=== PATIENT | male | born 1990 | race African-American/Black ===

== ENCOUNTER 2021-06-13 23:38 | Emergency (ER) | payer MEDICAID ==
[~2021-06-13] VITALS: Ht 175.3 cm; Wt 75.0 kg
[2021-06-14 00:06] LABS: BASOPHILS % (AUTO) 0.2 % (0.0-2.0); EOSINOPHILS % (AUTO) 0.8 % (1.0-6.0); HEMATOCRIT 36.5 % (41-53); HEMOGLOBIN 12.3 g/dL (13.5-17.5); LYMPHOCYTES # (AUTO) 0.6 K/uL (1.0-4.8); LYMPHOCYTES % (AUTO) 8.4 % (22.0-44.0); MEAN CORPUSCULAR HEMOGLOBIN 26.1 pg (26.0-34.0); MEAN CORPUSCULAR HGB CONC 33.6 G/dL (31.0-37.0); MEAN CORPUSCULAR VOLUME 78 fL (80-100); MONOCYTES # (AUTO) 0.5 K/uL (0.1-1.0); MONOCYTES % (AUTO) 7.1 % (2.0-9.0); NEUTROPHILS # (AUTO) 5.6 K/uL (1.8-7.7); NEUTROPHILS % (AUTO) 83.5 % (40.0-70.0); PLATELET COUNT (AUTO) 275 K/uL (150-450); RED CELL DISTRIBUTION WIDTH 12.9 % (11.5-14.5)
[2021-06-14] MEDS ORDERED: DiphenhydrAMINE HCL 50 MG/ML VIAL IM ONE (00:15)
[2021-06-14] MEDS ORDERED: HALOPERIDOL LACTATE 5 MG/ML VIAL IM ONE (00:15)
[2021-06-14] MEDS ORDERED: LORazepam 2 MG/ML VIAL IVP ONE ×3 (00:15)
[2021-06-14] MEDS ORDERED: LORazepam 2 MG/ML VIAL IM ONE (00:30)
[2021-06-14 00:32] LABS: COVID AG,FIA SOURCE NASOPHARYNGEAL
[2021-06-14 00:42] LABS: ALANINE AMINOTRANSFERASE 26 U/L (12-78); ALBUMIN 3.7 g/dL (3.4-5.0); ALKALINE PHOSPHATASE 78 U/L (46-116); ANION GAP 8 mmol/L (8-16); ASPARTATE AMINOTRANSFERASE 20 U/L (15-37); BILIRUBIN,TOTAL 0.3 mg/dL (0.1-1.0); CALCIUM, TOTAL 8.8 mg/dL (8.8-10.5); CARBON DIOXIDE 28 mmol/L (22-29); CHLORIDE 103 mmol/L (98-107); CREATINE KINASE, TOTAL ONLY 452 U/L (39-308); CREATININE 1.33 mg/dL (0.60-1.30); POTASSIUM 4.2 mmol/L (3.5-5.1); SODIUM SERUM 139 mmol/L (136-145); TOTAL PROTEIN, SERUM 7.3 g/dL (6.4-8.2); UREA NITROGEN, BLOOD 22 mg/dL (7-18)
[2021-06-14 00:58] LABS: GLOMERULAR FILTR. RATE CALC > 60 mL/min (>60); GLUCOSE,RANDOM 81 mg/dL (70-110)
[2021-06-14 08:00] VITALS: BP 143/70
== END 2021-06-14 08:40 | disposition left against medical advice (07) ==
LOC: EMS 23:38
DX: F19.959 Other psychoactive substance use, unspecified with psychoactive substance-induced psychotic disorder, unspecified (principal); F12.90 Cannabis use, unspecified, uncomplicated; F15.90 Other stimulant use, unspecified, uncomplicated; Z79.899 Other long term (current) drug therapy; Z20.822 Contact with and (suspected) exposure to COVID-19
CPT/HCPCS: 36415; 80053; 82550; 85025; 87426; 93005; 96372; 96374; 96375; 99285; G0480; J1200; J1630; J2060 ×2

== ENCOUNTER 2024-05-19 14:20 | Inpatient (IN) | payer MEDICAID, OTHER ==
[~2024-05-19] VITALS: Ht 172.7 cm; Wt 70.5 kg
[~2024-05-19 14:20] MED LIST: BUPR-49 PO; BUSP10TA23 PO; OLAN7.5T22 PO; VENL-193 PO
[2024-05-19] MEDS: SODIUM CHLORIDE 0.9% 1,000 ML IV ONE ×2 (14:36→19:09)
[2024-05-19] MEDS: MIDAZOLAM HCL 5 MG/ML VIAL IVP ONE (14:36)
[2024-05-19 14:42] LABS: BASOPHILS % (AUTO) 0.3 % (0.0-2.0); EOSINOPHILS % (AUTO) 0.4 % (1.0-6.0); HEMATOCRIT 33.8 % (41-53); LYMPHOCYTES # (AUTO) 1.3 K/uL (1.0-4.8); LYMPHOCYTES % (AUTO) 22.7 % (22.0-44.0); MEAN CORPUSCULAR HEMOGLOBIN 25.1 pg (26.0-34.0); MEAN CORPUSCULAR HGB CONC 32.6 G/dL (31.0-37.0); MEAN CORPUSCULAR VOLUME 77 fL (80-100); MONOCYTES # (AUTO) 0.7 K/uL (0.1-1.0); MONOCYTES % (AUTO) 12.4 % (2.0-9.0); NEUTROPHILS # (AUTO) 3.6 K/uL (1.8-7.7); NEUTROPHILS % (AUTO) 64.2 % (40.0-70.0); PLATELET COUNT (AUTO) 383 K/uL (150-450); RED BLOOD CELL COUNT(AUTO) 4.38 MIL/uL (4.50-5.90); RED CELL DISTRIBUTION WIDTH 13.9 % (11.5-14.5); WHITE BLOOD COUNT (AUTO) 5.7 K/uL (4.5-11.0)
[2024-05-19] MEDS: ACETAMINOPHEN 650 MG/ISO-OSM 65 ML IV ONE (14:44)
[2024-05-19 15:18] LABS: RBC MORPHOLOGY COMMENT ABNORMAL RBC MORPH
[2024-05-19] MEDS: KETAMINE HCL 50 MG/ML 10 ML VIAL IM ONE (15:20)
[2024-05-19] MEDS ORDERED: ZOLPIDEM TARTRATE 10 MG TABLET PO PRN (15:30)
[2024-05-19] MEDS ORDERED: HALOPERIDOL 5 MG TABLET PO PRN (15:30)
[2024-05-19 15:34] LABS: LACTIC ACID 2.5 mmol/L (0.4-2.0)
[2024-05-19 15:38] LABS: ANION GAP 12 mmol/L (8-16); CALCIUM, TOTAL 8.6 mg/dL (8.8-10.5); CARBON DIOXIDE 24 mmol/L (22-29); CHLORIDE 102 mmol/L (98-107); CREATININE 1.16 mg/dL (0.60-1.30); GLOMERULAR FILTR. RATE CALC > 60 mL/min (>60); GLUCOSE,RANDOM 79 mg/dL (70-110); POTASSIUM 3.4 mmol/L (3.5-5.1); SODIUM SERUM 138 mmol/L (136-145); UREA NITROGEN, BLOOD 19 mg/dL (7-18)
[2024-05-19 15:47] LABS: CREATINE KINASE, TOTAL ONLY 977 U/L (39-308); TROPONIN I-HIGH SENSITIVITY 5 ng/L (<76)
[2024-05-19 17:49] LABS: COVID AG,FIA SOURCE NASAL SWAB
[2024-05-19 18:11] LABS: SARS-COV2 (COVID) ANTIGEN,FIA Negative (Negative)
[2024-05-19 19:02] LABS: APPEARANCE,URINE CLEAR (CLEAR); BILIRUBIN,URINE NEGATIVE (NEGATIVE); COLOR,URINE YELLOW (YELLOW); GLUCOSE, URINE (UA) NEGATIVE (NEGATIVE); KETONES,URINE NEGATIVE (NEGATIVE); LEUKOCYTE ESTERASE ,URINE NEGATIVE (NEGATIVE); NITRATE,URINE NEGATIVE (NEGATIVE); OCCULT BLOOD,URINE NEGATIVE (NEGATIVE); PROTEIN,URINE 30-70 mg/dL (NEGATIVE); SPECIFIC GRAVITIY, URINE 1.039 (1.003-1.030); UROBILINOGEN,URINE <=1.0 mg/dL (<=1.0)
[2024-05-19 19:08] LABS: ALCOHOL, URINE DRUG SCREEN NEGATIVE (NEGATIVE); AMPHET/METH SCREEN,URINE POSITIVE (NEGATIVE); BARBITURATE SCREEN, URINE NEGATIVE (NEGATIVE); BENZODIAZEPINES SCREEN,URINE POSITIVE (NEGATIVE); CANNABINOID SCREEN,URINE POSITIVE (NEGATIVE); COCAINE SCREEN,URINE NEGATIVE (NEGATIVE); METHADONE SCREEN, URINE NEGATIVE (NEGATIVE); OPIATE SCREEN,URINE NEGATIVE (NEGATIVE); PHENCYCLIDINE SCREEN,URINE NEGATIVE (NEGATIVE)
[2024-05-20 01:50] VITALS: BP 131/100; PULSE 95; RESP 18; TEMP 97; O2SAT 98
[2024-05-20 03:02] VITALS: BP 131/100; PULSE 95; RESP 18; TEMP 97; O2SAT 98
[2024-05-20] MEDS ORDERED: PETROLATUM,WHITE 28 GM JELLY TP PRN (07:00)
[2024-05-20] MEDS ORDERED: BACITRACIN 28 GM OINTMENT TP PRN (07:00)
[2024-05-20] MEDS ORDERED: LOPERAMIDE HCL 2 MG CAPSULE PO PRN (07:00)
[2024-05-20] MEDS ORDERED: CloNIDine HCL 0.1 MG TABLET PO PRN (07:00)
[2024-05-20] MEDS ORDERED: BENZOCAINE/MENTHOL [CEPACOL] LOZENGE PO PRN (07:00)
[2024-05-20] MEDS ORDERED: ONDANSETRON 4 MG TABLET PO PRN (07:00)
[2024-05-20] MEDS ORDERED: ALBUTEROL SULFATE HFA 90 MCG/PUFF 8 GM INHALER IH PRN (07:00)
[2024-05-20] MEDS ORDERED: DOCUSATE SODIUM 100 MG CAPSULE PO PRN (07:00)
[2024-05-20] MEDS ORDERED: MAGNESIUM HYDROXIDE SUSPENSION 30 ML UDCUP PO PRN (07:00)
[2024-05-20] MEDS ORDERED: OMEPRAZOLE 20 MG CAPSULE PO PRN (07:00)
[2024-05-20] MEDS ORDERED: MAG HYDROX/ALUMINUM HYD/SIMETH ES 30 ML SUSPENSION UDCUP PO PRN (07:00)
[2024-05-20] MEDS ORDERED: ACETAMINOPHEN 325 MG TABLET PO PRN (07:00)
[2024-05-20] MEDS: POTASSIUM CHLORIDE 20 MEQ ER TABLET PO ONE (07:09)
[2024-05-20 08:26] VITALS: RESP 18
[2024-05-20 17:40] VITALS: BP 129/74; PULSE 84; RESP 18; TEMP 97.8
[2024-05-20] MEDS: IBUPROFEN 600 MG TABLET PO PRN (17:49)
[2024-05-20 21:50] VITALS: BP 114/61; PULSE 89; RESP 18; TEMP 97.8; O2SAT 96
[2024-05-21 08:13] VITALS: BP 117/54; PULSE 88; RESP 18; TEMP 97.8; O2SAT 100
[2024-05-21 08:52] LABS: BASOPHILS % (AUTO) 0.6 % (0.0-2.0); EOSINOPHILS % (AUTO) 4.5 % (1.0-6.0); HEMOGLOBIN 11.8 g/dL (13.5-17.5); LYMPHOCYTES # (AUTO) 1.1 K/uL (1.0-4.8); LYMPHOCYTES % (AUTO) 31.9 % (22.0-44.0); MEAN CORPUSCULAR HEMOGLOBIN 25.5 pg (26.0-34.0); MEAN CORPUSCULAR HGB CONC 32.7 G/dL (31.0-37.0); MEAN CORPUSCULAR VOLUME 78 fL (80-100); MONOCYTES # (AUTO) 0.4 K/uL (0.1-1.0); MONOCYTES % (AUTO) 12.8 % (2.0-9.0); NEUTROPHILS # (AUTO) 1.7 K/uL (1.8-7.7); NEUTROPHILS % (AUTO) 50.2 % (40.0-70.0); PLATELET COUNT (AUTO) 336 K/uL (150-450); RED BLOOD CELL COUNT(AUTO) 4.61 MIL/uL (4.50-5.90); RED CELL DISTRIBUTION WIDTH 13.7 % (11.5-14.5); WHITE BLOOD COUNT (AUTO) 3.4 K/uL (4.5-11.0)
[2024-05-21 08:59] LABS: ALANINE AMINOTRANSFERASE 23 U/L (12-78); ALBUMIN 2.6 g/dL (3.4-5.0); ALKALINE PHOSPHATASE 74 U/L (46-116); ANION GAP 8 mmol/L (8-16); ASPARTATE AMINOTRANSFERASE 26 U/L (15-37); BILIRUBIN,TOTAL 0.2 mg/dL (0.1-1.0); CALCIUM, TOTAL 8.2 mg/dL (8.8-10.5); CARBON DIOXIDE 26 mmol/L (22-29); CHLORIDE 101 mmol/L (98-107); CREATINE KINASE, TOTAL ONLY 575 U/L (39-308); CREATININE 0.75 mg/dL (0.60-1.30); GLOMERULAR FILTR. RATE CALC > 60 mL/min (>60); GLUCOSE,RANDOM 88 mg/dL (70-110); PHOSPHORUS 3.1 mg/dL (2.5-4.9); POTASSIUM 4.1 mmol/L (3.5-5.1); SODIUM SERUM 135 mmol/L (136-145); TOTAL PROTEIN, SERUM 6.3 g/dL (6.4-8.2); UREA NITROGEN, BLOOD 12 mg/dL (7-18)
[2024-05-21 16:50] VITALS: RESP 18
[2024-05-21 17:57] VITALS: RESP 16
[2024-05-21 21:52] VITALS: BP 101/63; PULSE 87; RESP 18; TEMP 97.7; O2SAT 99
[2024-05-21] MEDS: OLANZapine 7.5 MG TABLET PO SCH (21:59)
[2024-05-22] MEDS: LORazepam 2 MG TABLET PO PRN (16:33)
[2024-05-22] MEDS: LITHIUM CARBONATE 300 MG CAPSULE PO SCH (16:33)
[2024-05-22 20:29] VITALS: RESP 17
[2024-05-23 09:40] VITALS: BP 110/70; PULSE 78; RESP 19; TEMP 97.6; O2SAT 97
[2024-05-23 21:13] VITALS: BP 121/63; PULSE 68; RESP 18; TEMP 97.3; O2SAT 97
[2024-05-25 09:39] VITALS: BP 117/73; PULSE 94; RESP 17; TEMP 97.6; O2SAT 97
[2024-05-25 16:30] VITALS: RESP 18
[2024-05-25 20:25] VITALS: RESP 18
[2024-05-26] MEDS ORDERED: LITH300C3 PO (16:10)
== END 2024-05-26 17:00 | disposition home or self-care (01) | DRG 750 ==
LOC: EMS 14:23 → B3A 05-20 01:34
PROVIDERS: ADMIT Psychiatry & Neurology Psychiatry; ATTEND Psychiatry & Neurology Psychiatry
DX: F20.9 Schizophrenia, unspecified (principal); M62.82 Rhabdomyolysis; Z20.822 Contact with and (suspected) exposure to COVID-19; E87.6 Hypokalemia; G47.00 Insomnia, unspecified; K59.00 Constipation, unspecified; F15.129 Other stimulant abuse with intoxication, unspecified; F32.A Depression, unspecified; F41.0 Panic disorder [episodic paroxysmal anxiety]; Z87.891 Personal history of nicotine dependence; F19.10 Other psychoactive substance abuse, uncomplicated
CPT/HCPCS: 51702; 71045; 80048; 80053; 80307; 81003; 82550; 83605; 83735; 84100; 84484; 85025; 87040; 93005; J0131; J2250; J3490; J7030; 36415-L1; 36415-TC

== ENCOUNTER 2024-05-31 03:49 | Emergency (ER) | payer MEDICAID, OTHER ==
[~2024-05-31] VITALS: Ht 172.7 cm; Wt 81.8 kg
[~2024-05-31 03:49] MED LIST changes: -BUPR-49 PO; -BUSP10TA23 PO; +LITH300C3 PO; -VENL-193 PO
[2024-05-31 03:56] VITALS: TEMP 99.1
[2024-05-31 04:26] LABS: BASOPHILS % (AUTO) 0.1 % (0.0-2.0); EOSINOPHILS % (AUTO) 0.4 % (1.0-6.0); HEMATOCRIT 32.3 % (41-53); HEMOGLOBIN 10.8 g/dL (13.5-17.5); LYMPHOCYTES # (AUTO) 0.8 K/uL (1.0-4.8); LYMPHOCYTES % (AUTO) 7.6 % (22.0-44.0); MEAN CORPUSCULAR HGB CONC 33.4 G/dL (31.0-37.0); MEAN CORPUSCULAR VOLUME 78 fL (80-100); MONOCYTES # (AUTO) 0.9 K/uL (0.1-1.0); MONOCYTES % (AUTO) 8.2 % (2.0-9.0); NEUTROPHILS # (AUTO) 9.1 K/uL (1.8-7.7); NEUTROPHILS % (AUTO) 83.7 % (40.0-70.0); PLATELET COUNT (AUTO) 299 K/uL (150-450); RED BLOOD CELL COUNT(AUTO) 4.15 MIL/uL (4.50-5.90); RED CELL DISTRIBUTION WIDTH 13.9 % (11.5-14.5); WHITE BLOOD COUNT (AUTO) 10.9 K/uL (4.5-11.0)
[2024-05-31 04:28] LABS: COVID AG,FIA SOURCE NASAL SWAB
[2024-05-31 04:40] LABS: ANION GAP 7 mmol/L (8-16); CARBON DIOXIDE 29 mmol/L (22-29); CHLORIDE 101 mmol/L (98-107); CREATININE 1.08 mg/dL (0.60-1.30); GLOMERULAR FILTR. RATE CALC > 60 mL/min (>60); GLUCOSE,RANDOM 67 mg/dL (70-110); POTASSIUM 3.3 mmol/L (3.5-5.1); SODIUM SERUM 137 mmol/L (136-145); UREA NITROGEN, BLOOD 19 mg/dL (7-18)
[2024-05-31 04:52] LABS: ALCOHOL, BLOOD (SERUM) < 3 mg/dL (0-10)
[2024-05-31 04:54] LABS: SARS-COV2 (COVID) ANTIGEN,FIA Negative (Negative)
[2024-05-31] MEDS: DiphenhydrAMINE HCL 50 MG/ML VIAL IM ONE (05:04)
[2024-05-31] MEDS: HALOPERIDOL LACTATE 5 MG/ML VIAL IM ONE (05:04)
[2024-05-31] MEDS: LORazepam 2 MG/ML VIAL IM ONE (05:04)
[2024-05-31 17:52] VITALS: BP 121/78; PULSE 75; RESP 17; O2SAT 99
== END 2024-05-31 17:53 | disposition admitted as inpatient to this hospital (09) ==
LOC: EMS 04:08 → CANBEDREQ 16:49 → EMS 17:53
DX: F15.129 Other stimulant abuse with intoxication, unspecified (principal); R41.0 Disorientation, unspecified; E87.6 Hypokalemia; F17.210 Nicotine dependence, cigarettes, uncomplicated; F20.9 Schizophrenia, unspecified; Z79.899 Other long term (current) drug therapy; Z20.822 Contact with and (suspected) exposure to COVID-19
CPT/HCPCS: 99285; 87426; 80048; 85025; 36415; 96372; G0480; J1200; J1630; J2060